=== PATIENT | female | born 2000 | race Two or more races ===

== ENCOUNTER 2022-04-03 04:17 | Inpatient (IN) | payer MEDICAID ==
[~2022-04-03] VITALS: Ht 157.5 cm; Wt 61.4 kg
[2022-04-03] MEDS ORDERED: normal saline 1000ml 1,000 ML IV SCH ×2 (04:30)
[2022-04-03] MEDS ORDERED: sodium bicarbonate (8.4%) inj. 100 MEQ in dextrose 5% water 500ml 500 ML IV PRN ×2 (04:30→05:55)
[2022-04-03] MEDS ORDERED: normal saline 1000ML IV soln IVB ONE (04:35)
[2022-04-03 04:45] LABS: BASOPHILS % (AUTO) 0.3 % (0-1); EOSINOPHILS % (AUTO) 0.3 % (0-6); LYMPHOCYTES # (AUTO) 2.1 X10'3 (1.1-4.8); LYMPHOCYTES % (AUTO) 23.7 % (21-51); MEAN PLATELET VOLUME 8.4 FL (7.4-10.4); MONOCYTES # (AUTO) 0.6 X10'3 (0-0.9); NEUTROPHILS % (AUTO) 68.7 % (42-75); PLATELET COUNT 275 X10'3 (140-440); WHITE BLOOD COUNT 8.7 X10'3 (4.5-11.0)
[2022-04-03] MEDS ORDERED: LORazepam 2 mg/ml vial IV ONE (04:45)
[2022-04-03 05:01] LABS: ALANINE AMINOTRANSFERASE 25 U/L (12-78); ALBUMIN 3.7 G/DL (3.4-5.0); ALKALINE PHOSPHATASE 99 IU/L (20-180); ANION GAP 21 (8-16); ASPARTATE AMINO TRANSFERASE 13 U/L (10-37); BILIRUBIN,TOTAL 0.7 MG/DL (0.1-1.0); BLOOD UREA NITROGEN 15 MG/DL (7-18); BUN/CREATININE RATIO 16.5 (6.6-38.0); CALCIUM 8.9 MG/DL (8.5-10.1); CHLORIDE 94 MMOL/L (99-107); CREATININE 0.91 MG/DL (0.40-0.90); MAGNESIUM 1.6 MG/DL (1.5-2.4); POTASSIUM 4.7 MMOL/L (3.5-5.1); SODIUM 127 MMOL/L (135-145); TOTAL PROTEIN 7.5 G/DL (6.4-8.2); eGFR 79 ML/MIN
[2022-04-03 05:02] LABS: CLARITY,URINE CLEAR (Clear); GLUCOSE, URINE >=1000 mg/dl (Neg); KETONES,URINE >=80 mg/dl (Neg); LEUKOCYTE ESTERASE ,URINE NEGATIVE (Neg); NITRITES, URINE NEGATIVE (Neg); OCCULT BLOOD,URINE NEGATIVE (Neg); PROTEIN,URINE NEGATIVE (Neg); UROBILINOGEN,URINE 0.2 E.U/dL (0.2-1.0)
[2022-04-03 05:03] LABS: GLUCOSE 573 MG/DL (70-104)
[2022-04-03 05:04] LABS: TOTAL CARBON DIOXIDE 11.9 MMOL/L (24-32)
[2022-04-03 05:04] LABS: URINE HCG NEGATIVE (NEG)
[2022-04-03 05:05] LABS: COLOR,URINE STRAW (Yellow); UA COLLECTION TYPE NON-SPECIFIED
[2022-04-03 05:08] LABS: URINE AMPHETAMINE SCREEN NEGATIVE (Neg); URINE BARBITUATE SCREEN NEGATIVE (Neg); URINE BENZODIAZEPINES SCREEN NEGATIVE (Neg); URINE CANNABINOID SCREEN NEGATIVE (Neg); URINE COCAINE SCREEN NEGATIVE (Neg); URINE METHADONE SCREEN NEGATIVE (Neg); URINE OPIATE SCREEN NEGATIVE (Neg); URINE PHENCYCLIDINE SCREEN NEGATIVE (Neg)
[2022-04-03] MEDS ORDERED: Insulin Reg/NS 100units/100mL 100 ML IV PRN (05:10)
[2022-04-03 05:11] LABS: HEMATOCRIT 26.9 % (35.0-45.0); HEMOGLOBIN 8.7 g/dl (12.0-16.0); MEAN CORPUSCULAR HEMOGLOBIN 17.8 PG (27.0-31.0); MEAN CORPUSCULAR HGB CONC 32.3 g/dL (33.0-36.5); MEAN CORPUSCULAR VOLUME 55.3 FL (78-98); RED BLOOD COUNT 4.87 X10'6 (4.20-5.60); RED CELL DISTRIBUTION WIDTH 18.7 % (11.5-14.5)
[2022-04-03 05:11] LABS: WBC,URINE 0-4 /HPF (0-4)
[2022-04-03 05:12] LABS: BACTERIA,URINE 2+ /HPF (Neg); RBC,URINE 0-2 /HPF (0-2); SQUAMOUS EPITHELIAL CELL,UR FEW /LPF (FEW); YEAST FEW /HPF (NEGATIVE)
[2022-04-03 05:13] LABS: LARGE PLATELETS FEW; PLATELET ESTIMATE NORMAL
[2022-04-03 05:14] LABS: ANISOCYTOSIS 2+; MICROCYTOSIS 1+
[2022-04-03 05:15] LABS: HYPOCHROMASIA 2+; POLYCHROMASIA 1+
[2022-04-03] MEDS ORDERED: Insulin Reg/NS 100units/100mL 100 ML IV SCH ×2 (05:25→05:55)
[2022-04-03] MEDS ORDERED: insulin regular, human U-100 3ml vial - multi-dose IV PRN ×2 (05:25→05:55)
[2022-04-03 05:34] LABS: ABG BASE EXCESS -16.6 mmol/L (-2.0-2.0); ABG HCO3 8.9 mmol/L (22.0-26.0); ABG OXYGEN SATURATION 97.4 % (94-97); ABG PCO2 (T) 21.4 mmHg (32.0-45.0); ABG PO2 (T) 117.4 mmHg (75.0-100.0); ALLEN'S TEST POSITIVE; FCOHb 0.3 % (0.0-3.9); FMetHb 0.4 % (0.0-1.5); FO2Hb 96.7 % (94-97); PATIENT TEMPERATURE 37.3; TOTAL HEMOGLOBIN 9.5 G/dl (12.0-16.0)
[2022-04-03] MEDS ORDERED: potassium CL 10mEq/100ml bag 100 ML IV PRN (05:50)
[2022-04-03] MEDS ORDERED: magnesium 2GM in 50ml NS 50 ML IV PRN (05:50)
[2022-04-03] MEDS ORDERED: ondansetron/PF 4mg/2ml inj IV PRN (05:50)
[2022-04-03] MEDS ORDERED: POTASSIUM BICARB 20meq eff tab 20 MEQ TABLET.EFF PO PRN ×2 (05:50)
[2022-04-03] MEDS ORDERED: magnesium 4gm in 100ml NS 100 ML IV PRN (05:50)
[2022-04-03] MEDS ORDERED: acetaminophen 325mg tablet PO PRN (05:50)
[2022-04-03] MEDS: normal saline 1000ml 1,000 ML IV SCH ×7 (05:50→14:31)
[2022-04-03] MEDS ORDERED: magnesium hydroxide 30ml (MOM) UD suspension PO PRN (05:50)
[2022-04-03] MEDS ORDERED: magnesium Cl slow-release 64mg tablet PO PRN (05:50)
[2022-04-03] MEDS ORDERED: mag hydrox/Alum hydrox/simeth 30ml oral suspension PO PRN (05:50)
[2022-04-03] MEDS ORDERED: potassium Cl 20 mEq SR tablet PO PRN ×2 (05:55)
[2022-04-03] MEDS ORDERED: potassium Cl 40MEQ/1/2NS 520ml 520 ML IV PRN ×2 (05:55)
[2022-04-03] MEDS ORDERED: sodium bicarbonate (8.4%) inj. 50 MEQ in dextrose 5% water 500ml 250 ML IV PRN (05:55)
[2022-04-03] MEDS ORDERED: potassium CL 20mEq in D5-1/2NS 1,000 ML IV PRN ×2 (05:55→09:20)
[2022-04-03] MEDS ORDERED: docusate sod 100mg capsule PO SCH (08:00)
[2022-04-03] MEDS ORDERED: K and/or MAG REPLACEMENT MC SCH ×2 (08:00)
[2022-04-03] MEDS ORDERED: heparin, porcine 5000 units/ml vial SQ SCH (08:00)
[2022-04-03 09:01] LABS: ALANINE AMINOTRANSFERASE 23 U/L (12-78); ALBUMIN 2.8 G/DL (3.4-5.0); ALBUMIN/GLOBULIN RATIO 0.9 (1.1-1.5); ALKALINE PHOSPHATASE 77 IU/L (20-180); ANION GAP 14 (8-16); ASPARTATE AMINO TRANSFERASE 12 U/L (10-37); BILIRUBIN,TOTAL 0.4 MG/DL (0.1-1.0); BLOOD UREA NITROGEN 12 MG/DL (7-18); BUN/CREATININE RATIO 18.8 (6.6-38.0); CALCIUM 7.2 MG/DL (8.5-10.1); CHLORIDE 105 MMOL/L (99-107); CREATININE 0.64 MG/DL (0.40-0.90); GLUCOSE 232 MG/DL (70-104); PHOSPHORUS 2.3 MG/DL (2.3-4.5); POTASSIUM 4.1 MMOL/L (3.5-5.1); SODIUM 134 MMOL/L (135-145); TOTAL CARBON DIOXIDE 15.2 MMOL/L (24-32); TOTAL PROTEIN 5.9 G/DL (6.4-8.2); eGFR > 90 ML/MIN
[2022-04-03 09:05] LABS: BASOPHILS # (AUTO) 0.1 X10'3 (0-0.2); BASOPHILS % (AUTO) 0.7 % (0-1); EOSINOPHILS % (AUTO) 0 % (0-6); LYMPHOCYTES # (AUTO) 2.9 X10'3 (1.1-4.8); LYMPHOCYTES % (AUTO) 28.9 % (21-51); MEAN PLATELET VOLUME 8.6 FL (7.4-10.4); MONOCYTES # (AUTO) 0.6 X10'3 (0-0.9); MONOCYTES % (AUTO) 6.3 % (2-12); NEUTROPHILS # (AUTO) 6.5 X10'3 (1.8-7.7); NEUTROPHILS % (AUTO) 64.1 % (42-75); PLATELET COUNT 271 X10'3 (140-440); RED CELL DISTRIBUTION WIDTH 19.4 % (11.5-14.5); WHITE BLOOD COUNT 10.1 X10'3 (4.5-11.0)
[2022-04-03 09:24] LABS: HEMATOCRIT 27.6 % (35.0-45.0); HEMOGLOBIN 9.1 g/dl (12.0-16.0); MEAN CORPUSCULAR HEMOGLOBIN 18.5 PG (27.0-31.0); MEAN CORPUSCULAR VOLUME 56.4 FL (78-98); RED BLOOD COUNT 4.89 X10'6 (4.20-5.60)
[2022-04-03 09:25] LABS: MEAN CORPUSCULAR HGB CONC 32.8 g/dL (33.0-36.5)
--- NOTE | 2022-04-03 09:32 | NUR ---
PT EXPRESSED THAT SHE ONLY WANTED HER FATHER TO BE GIVEN MEDICAL UPDATES ON PT. PT NOT FROM THE AREA AND PREFACED THAT SHE DROVE HERE WITH FRIEND TO WATCH SOMEONE PLAY FOOTBALL. PT ASKED IF SHE WAS IN ANY DANGER OR HAD ANY CONCERN FOR HER SAFTEY AND SHE DENIED THE CONCERN. PT HAS HAD TWO FRIENDS COME AND VISIT HER THAT SHE APPROVED. PT STORY IS A LITTLE CONFUSING.
--- NOTE | 2022-04-03 11:36 | NUR ---
SPOKE WITH HOSPITALIST CARMEN CONCERNING DKA PROTOCOL AND HIS DESIRED TREATMENT MOVING FORWARD. HOSPITALIST RECOMMENDED THAT PT DISCONTINUE PROTOCOL AND AFTER EATING LUNCH TODAY, GO BACK TO NORMAL HYPOGLYCEMIC/T1DM CORRECTIVE DOSE PROTOCOL.
[2022-04-03 11:55] LABS: ALBUMIN 3.1 G/DL (3.4-5.0); ANION GAP 13 (8-16); BLOOD UREA NITROGEN 9 MG/DL (7-18); BUN/CREATININE RATIO 14.8 (6.6-38.0); CALCIUM 7.3 MG/DL (8.5-10.1); CHLORIDE 108 MMOL/L (99-107); CREATININE 0.61 MG/DL (0.40-0.90); GLUCOSE 195 MG/DL (70-104); POTASSIUM 4.1 MMOL/L (3.5-5.1); SODIUM 136 MMOL/L (135-145); TOTAL CARBON DIOXIDE 15.4 MMOL/L (24-32); eGFR > 90 ML/MIN
[2022-04-03] MEDS ORDERED: NOVLG SQ (12:48)
[2022-04-03] MEDS ORDERED: LANTUS SQ (12:48)
[2022-04-03] MEDS ORDERED: dextrose 50%-water 50ml dispensing syringe IV PRN ×2 (13:10)
[2022-04-03] MEDS ORDERED: insulin Lispro (HumaLOG) vial - multi-dose SQ SCH (13:10)
[2022-04-03] MEDS ORDERED: DEXTROSE 15 GM of carb/4 tabs (each vial/BOTTLE has 4 tablets) PO PRN ×2 (13:10)
[2022-04-03] MEDS ORDERED: MESSAGE TO PHARMACY PO ONE (13:10)
[2022-04-03] MEDS ORDERED: glucagon, human recombinant 1mg kit SUBCUT PRN (13:10)
[2022-04-03 15:37] VITALS: BP 128/78
[2022-04-03] MEDS ORDERED: insulin glargine (Lantus) pen - multi-dose SQ SCH ×2 (21:00)
== END 2022-04-03 15:37 | disposition home or self-care (01) | DRG 420 ==
LOC: ER 04:20 → ED HOLD 05:51
PROVIDERS: ADMIT Internal Medicine; ATTEND Family Medicine
DX: E10.10 Type 1 diabetes mellitus with ketoacidosis without coma (principal); N17.0 Acute kidney failure with tubular necrosis
CPT/HCPCS: 36415; 36600; 71045; 80048; 80053; 80305; 81001; 81025; 82803; 82948; 83036; 83735; 84100; 84484; 85008; 85018; 85025; 96365; 96375; 96376; 99285; G0378; J1644; J1815; J2060; J3480; J7030; J7040; J7042; J7121